=== PATIENT | female | born 2000 | race Caucasian/White ===

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

== ENCOUNTER → 2021-01-27 | Outpatient (CLI) | payer OTHER ==
[~2021-01-27] MED LIST changes: -CONTRAST GIVEN. MC PRN; -GADOTERATE 5 MMOL/10ML VIAL. IVP ONE; -IOHEXOL 300 MG/ML 50 ML VIAL. IJ ONE; -LIDOCAINE WITH 8.4% SOD BICARB 3 ML DISP.SYRIN. INJ ONE
[2021-01-27 11:27] LABS: BASO % 1 % (0-3); EOS # 0.2 x10^3/uL (0.0-0.7); EOS % 2 % (0-3); HEMATOCRIT 41.6 % (36.0-47.0); HEMOGLOBIN 14.2 g/dL (12.0-15.5); LYMPH % 13 % (24-48); MEAN CORPUSCULAR HEMOGLOBIN 30 pg (25-35); MEAN CORPUSCULAR HGB CONC 34 g/dL (31-37); MEAN CORPUSCULAR VOLUME 86 fL (79-100); MONO # 0.5 x10^3/uL (0.0-1.1); MONO % 7 % (0-9); NEUT # 6.2 x10^3/uL (1.8-7.7); NEUT % 78 % (31-73); PLATELET COUNT 280 x10^3/uL (140-400); RED BLOOD COUNT 4.83 x10^6/uL (3.50-5.40); RED CELL DISTRIBUTION WIDTH 13.1 % (11.5-14.5); WHITE BLOOD COUNT 7.9 x10^3/uL (4.0-11.0)
[2021-01-27 11:49] LABS: ALBUMIN 3.7 g/dL (3.4-5.0); ALBUMIN/GLOBULIN RATIO 1.2 (1.0-1.7); CALCIUM 9.1 mg/dL (8.5-10.1); TOTAL BILIRUBIN 0.6 mg/dL (0.2-1.0)
[2021-01-27 12:00] LABS: FREE T4 1.02 ng/dL (0.76-1.46); THYROID STIM HORMONE (TSH) 1.519 uIU/mL (0.358-3.74)
[2021-01-27 12:37] LABS: TOTAL PROTEIN 6.7 g/dL (6.4-8.2)
== END ==
LOC: LAB 11:07
PROVIDERS: ATTEND Nurse Practitioner Family
DX: R53.83 Other fatigue (principal)
CPT/HCPCS: 36415; 80053; 82306; 84439; 84443; 85025

== ENCOUNTER → 2021-02-23 | Outpatient (CLI) | payer OTHER ==
--- NOTE | 2021-02-23 13:24 | KCIC ---
EXAM: Lumbar spine, 5 views. HISTORY: Lifting injury. COMPARISON: None. FINDINGS: 5 views of the lumbar spine are obtained. There is lumbar hyperlordosis. There is 4 mm grad e 1 anterolisthesis of L5 on S1 with associated pars defects. There is mild retrolisthesis of L4 on L 5. There is mild multilevel endplate remodeling. There are few small endplate Schmorl's nodes. IMPRESSION: 1. Grade 1 anterolisthesis with pars defects at L5-S1. 2. Mild lumbar hyperlordosis and slight retrolisthesis of L4 on L5. 3. Minimal multilevel endplate remodeling. Electronically signed by: Farhana Cunha MD (02/23/2021 1:22 PM) [id number]
== END ==
LOC: KCIC 10:05
PROVIDERS: ATTEND Nurse Practitioner Family
DX: M43.17 Spondylolisthesis, lumbosacral region (principal); M51.46 Schmorl's nodes, lumbar region
CPT/HCPCS: 72110

== ENCOUNTER → 2021-03-30 | Outpatient (CLI) | payer OTHER ==
--- NOTE | 2021-03-30 11:21 | KCIC ---
MRI lumbar spine without contrast 03/30/2021 INDICATION: Lumbar, low back pain with associated radiculopathy COMPARISON STUDY: Lumbar spine radiographs February 23, 2021 TECHNIQUE: Multiplanar multisequence MRI imaging of the lumbar spine was performed without contrast. FINDINGS: There is no evidence of acute fracture or alignment abnormality. Vertebral body heights are maintained. Mild disc desiccation appears to be present in the inferior lumbar spine. No abnormal bone marrow signal is seen. The conus is in normal position without abnormal signal. Remaining findings by level are as follows: At the level of L1-L2, there is no evidence of disc bulge, neural foraminal narrowing, facet arthrosi s, ligamentum flavum thickening, or nerve root compression. At the level of L2-L3, there is no evidence of disc bulge, neural foraminal narrowing, facet arthrosi s, ligamentum flavum thickening, or nerve root compression. At the level of L3-L4, there is a broad-based disc bulge minimal central canal stenosis and narrowing of the bilateral, lateral recesses. Neural foramina are otherwise patent bilaterally. At the level of L4-L5, there is a broad-based disc bulge minimal central canal stenosis and narrowi ng of the bilateral, lateral recesses. Neural foramina are otherwise patent bilaterally. No nerve raman t compression is seen. At the level of L5-S1, <there is no evidence of disc bulge, neural foraminal narrowing, facet arthros is, ligamentum flavum thickening, or nerve root compression. Paravertebral soft tissues are unremarkable. Visualized intra-abdominal contents are within normal l imits. IMPRESSION: Overall mild degenerative changes of the lumbar spine most prominent at L3-4 and L4-5 wh ere there are broad-based disc bulges resulting in minimal canal stenosis and bilateral, lateral rece ss narrowing. Electronically signed by: Jeff Hui MD (03/30/2021 11:19 AM) [id number]
== END ==
LOC: KCIC MRI 09:48
PROVIDERS: ATTEND Nurse Practitioner Family
DX: M47.26 Other spondylosis with radiculopathy, lumbar region (principal); M51.26 Other intervertebral disc displacement, lumbar region
CPT/HCPCS: 72148

== ENCOUNTER → 2021-04-19 | Outpatient (CLI) | payer OTHER ==
[~2021-04-19] MED LIST changes: +ACET500T68 PO; +ARIP5TAB13 PO; +BUPR300T3 PO; +FEXO180T81 PO; +IOHEXOL 180 MG/ML 10 ML VIAL. ONE; +MELO15TA23 PO; +MONT10TA49 PO; +MULT-245 PO; +TIZA-75 PO; +inhaler; +methylPREDNISolone ACETATE 40 MG/ML VIAL. ONE
--- NOTE | 2021-04-19 12:54 | PDOC1 ---
INITIAL PAIN CONSULT DATE OF SERVICE: DOS: DATE: 04/19/21 TIME: 12:48 CHIEF COMPLAINT: Chief Complaint: Low back and right lower extremity pain HISTORY OF PRESENT ILLNESS: 20-year-old female presents history of pain low back right lower extremity for about 2 months now after moving and doing a lot of lifting and moving of furniture and boxes and items nothing to over heavy but repetitive motions and a lot of increase activity with moving patient reports that she has had pain now since that time in the low back on the right side rating the posterior gluteus posterior thigh lateral thigh anterior thigh medial thigh and into the ankle and foot with some numbness in the foot as well patient report is constant sharp stabbing throbbing change during the day worse with activity standing and walking getting up from seated position but reports numbness in the foot as well is aching in the back patient reports occasionally pain will ache on the left side as well in the low back patient reports wakes her from sleep about 2-3 times a night does not affect her bowel bladder control but does affect her ability to walk she normally walks about 7 miles a day for activity and exercise but is now only down to 2 miles patient reports has had physical therapy starting in middle February 7 sessions which is helpful but did not relieve the pain completely in the leg and the back patient reports she is taking meloxicam daily 15 mg which does help but only by moderate extent as well patient did have an MRI scan lumbar spine showing disc bulges broad-based at L3-4 with minimal central canal stenosis L4-5 shows broad-based disc bulge with minimal's canal stenosis as well and narrowing of the bilateral lateral recesses. Patient reports no loss of motor function with significant fatigability of the right lower extremity with walking and standing. Patient rates her disability rating 0-10 10 being worst is an 8 with family home responsibilities 6 with recreation social activity 5 with occupation self-care and life support activities. PAST MEDICAL HISTORY: PMH: No major medical problems or conditions that she is aware of PREVIOUS SURGERIES: Past Surgical Hx: Ear tubes CURRENT MEDICATIONS: Current Meds: Active Scripts Medications Dose Route/Sig Max Daily Dose Days Date Category [inhaler] PRN PRN 04/19/21 Reported Multi Vitamin Daily (Multivitamin) 1 Each Tablet 1 Tab PO DAILY 30 04/19/21 Reported Acetaminophen 500 Mg Tablet 1 Tab PO PRN Q6HRS PRN 15 04/19/21 Reported Tizanidine Hcl 4 Mg Tablet 1 Tab PO QHS 04/19/21 Reported Meloxicam 15 Mg Tablet 1 Tab PO DAILY 30 04/19/21 Reported Montelukast Sodium Tablet (Montelukast Sodium) 10 Mg Tablet 10 Mg PO HS 04/19/21 Reported Wellbutrin Xl (Bupropion Hcl) 300 Mg Tab.er.24h 1 Tab PO DAILY 04/19/21 Reported Abilify (Aripiprazole) 5 Mg Tablet 5 Mg PO DAILY 04/19/21 Reported Abiola Allergy (Fexofenadine Hcl) 180 Mg Tablet 1 Tab PO DAILY 14 04/19/21 Reported ALLERGIES; Allergies: Coded Allergies: No Known Drug Allergies (Unverified , 06/16/17) FAMILY HISTORY: Family Hx: Cancer, neurofibromatosis SOCIAL HISTORY: Social Hx: Patient is under alcohol does not smoke says any illegal illicit recreational drugs is single and is a student lives locally in [place], [place] REVIEW OF SYSTEMS: ROS: Positive for those items mentioned in history of present illness, all systems are reviewed, otherwise negative ,and are complete full and well-documented on patient's chart. PHYSICAL EXAM: VS: Blood pressure is 131/1 pulse 90 respirations 16 temperature is 98.7 F height 5 feet 8 inches weight is 272 pounds PE: PHYSICAL EXAMINATION: GENERAL: The patient is awake, alert, oriented, appropriate, very pleasant in demeanor, patient accompanied by her mother HEENT: Shows normocephalic, atraumatic. Extraocular movements are intact and symmetrical. Oral cavity: Mucous membranes moist and pink. Dentition is intact. NECK: Shows anterior throat supple without palpable lymphadenopathy noted. Swallow reflex symmetrical. CHEST: Shows normal on inspection. Breath sounds are clear bilaterally, no rales rhonchi or wheezes auscultated. HEART: Shows S1, S2 clear. No murmurs auscultated. ABDOMEN: Soft, nontender, nondistended, obese. No palpable organomegaly is noted. BACK: Shows spine grossly in the midline. Normal-appearing cervical lordotic curvature. There is slightly increased thoracic kyphosis, some minor flattening of the lumbar lordotic curvature. Lumbar paraspinous muscles show symmetrical on inspection, on palpation shows some moderate tenderness diffusely throughout the upper, middle and lower distribution of the paraspinous muscles bilaterally and also into the lower thoracic paraspinous musculature, firm and tender, but without specific trigger points, without radiation of pain. The patient shows good rotational motion of the lumbar spine, both laterally as well as extension and flexion without significant difficulty. No tenderness over the spinous processes, sacrum or sacroiliac regions. EXTREMITIES: Lower extremities show deep tendon reflexes 2+ in the patellar and tendo calcaneus tendons. Motor exam is 5 on a scale of 5 with right dorsiflexion, extension, quadriceps and hamstring flexion and 5 5/5 on the left. Peripheral pulses are 1+ posterior tibial. No peripheral edema is noted bilaterally. Lower extremities are warm and dry to touch, equal in color and appearance. Straight leg raise noted to be negative bilaterally. Gaenslen's and Oscar's maneuvers are negative bilaterally as well. The patient is able to stand, stand her toes that significant difficulty loss of balance walks with a normal-appearing gait does not appear to favor the right or left lower extremity significantly. SKIN: Shows warm and dry, good turgor. No edema. No sores, rashes or bruising throughout. IMPRESSION: Impression: 20-year-old female with approximate 2-month history low back right lower extremity pain in a radicular fashion #2 MRI scan lumbar spine as noted #3 obesity Plan: Options were discussed with the patient patient's mother who accompanied her to visit today including attending physical therapies and medical management and interventional techniques. Patient elects interventional techniques. We discussed a lumbar epidural steroid injections description as well as anatomical models to describe the procedure. Risks were discussed including but not limited to: Bleeding, infection, possibility of epidural hematoma and subsequent neurological compromise, dural puncture, headaches, spinal cord and/or nerve damage, side effects of steroid medication, and poor results regarding pain control. Patient understands and wished to proceed. Patient will return to the clinic in approximate 2 weeks for follow-up, was counseled return appointment, activity level, and side effect to be aware of. Procedure is lumbar epidural steroid injection under local anesthetic using sterile prep and drape at the L4-5 level using C-arm fluoroscopic guidance in both AP and lateral views medications injected is 120 mg Depo-Medrol +10mL preservative-free normal saline and 2 mL contrast- condition at discharge is stable patient tolerated procedure well had no complications. NIMCO ONOFRE MD Apr 19, 2021 12:54
--- NOTE | 2021-04-19 12:56 | PDOC4 ---
Procedure Note: ICD 10 Code: ICD 10 Code: M54.16 M 51.36 M 48.06 Procedure Note: Patient was consented for lumbar epidural steroid injection with fluoroscopic guidance. Risks were discussed including but not limited to: Bleeding, infection, possibility of epidural hematoma and subsequent neurological compromise, dural puncture, headaches, spinal cord and/or nerve damage, side effects of steroid medication, and poor results regarding pain control. Patient understands and wished to proceed. Procedure is lumbar epidural steroid injection under local anesthetic using st erile prep and drape at the L4-5 level using C-arm fluoroscopic guidance in both AP and lateral views medications injected is 120 mg Depo-Medrol +10mL preservative-free normal saline and 2 mL contrast- condition at discharge is stable patient tolerated procedure well had no complications. NIMCO ONOFRE MD Apr 19, 2021 12:56
== END | disposition home or self-care (01) ==
LOC: PNCL 10:21
PROVIDERS: ATTEND Anesthesiology
DX: M51.16 Intervertebral disc disorders with radiculopathy, lumbar region (principal); M48.061 Spinal stenosis, lumbar region without neurogenic claudication; M79.604 Pain in right leg; Z79.899 Other long term (current) drug therapy
CPT/HCPCS: 62323; J1030; Q9965

== ENCOUNTER → 2021-05-03 | Outpatient (CLI) | payer OTHER ==
[~2021-05-03] MED LIST changes: +methylPREDNISolone ACETATE 80 MG/ML VIAL. ONE
--- NOTE | 2021-05-03 10:21 | PDOC4 ---
Procedure Note: ICD 10 Code: ICD 10 Code: M54.16 M51.36 M4 8.06 Procedure Note: Patient was consented for lumbar epidural steroid injection with fluoroscopic guidance. Risks were discussed including but not limited to: Bleeding, infection, possibility of epidural hematoma and subsequent neurological compromise, dural puncture, headaches, spinal cord and/or nerve damage, side effects of steroid medication, and poor results regarding pain control. Patient understands and wished to proceed. Procedure is lumbar epidural steroid injection under local anesthetic using ry rile prep and drape at the L4-5 level using C-arm fluoroscopic guidance in both AP and lateral views medications injected is 120 mg Depo-Medrol +10mL preservative-free normal saline and 2 mL contrast- condition at discharge is stable patient tolerated procedure well had no complications. NIMCO ONOFER MD May 03, 2021 10:21
--- NOTE | 2021-05-03 10:21 | PDOC ---
Progress Note - Pain Clinic Date of Service: DOS: DATE: 05/03/21 TIME: 10:17 Diagnosis: Dx: Lumbar radiculopathy with lumbar degenerative disc disease and lumbar spinal stenosis History or Present Illness: HPI: 20-year-old female returns for follow-up status post lumbar epidural steroid injection x1. Patient reports about 25% improvement overall with pain still in the low back and right lower extremity patient is undergoing physical therapy as well which she reports is helpful also she doing some stretching think exercises at home as well but is noticed the pain is still persistent in the low back right leg posterior gluteus lateral thigh anterior thigh medial thigh and posterior thigh on the right side worse with walking on inclines with extended standing and bending patient reports still getting up from a kneeling position is difficult which she is required to do at work as well. Patient reports no bowel or bladder incontinence no new motor or sensory deficits rates her pain is a 6 on scale 10 is worst average and 3 at its least and is a 6 today. Patient reports no new deficits and no incontinence as noted. Physical Exam: VS: Blood pressure is 1.9/95 pulse 88 respiration 16 temperature is 98.4 F weight is 270 pounds PE: PHYSICAL EXAMINATION: GENERAL: The patient is awake, alert, oriented, appropriate, very pleasant in demeanor HEENT: Shows normocephalic, atraumatic. Extraocular movements are intact and symmetrical. Oral cavity: Mucous membranes moist and pink. Dentition is intact. NECK: Shows anterior throat supple without palpable lymphadenopathy noted. Swallow reflex symmetrical. CHEST: Shows normal on inspection. Breath sounds are clear bilaterally. HEART: Shows S1, S2 clear. No murmurs auscultated. ABDOMEN: Soft, nontender, nondistended, obese. No palpable organomegaly is noted. BACK: Shows spine grossly in the midline. Normal-appearing cervical lordotic curvature. There is mildly increased thoracic kyphosis, some flattening of the lumbar lordotic curvature. Lumbar paraspinous muscles show symmetrical on inspection, on palpation shows some moderate tenderness diffusely throughout the upper, middle and lower distribution of the paraspinous muscles, but without specific trigger points, without radiation of pain. The patient has good rotational motion of the lumbar spine, both laterally as well as extension and flexion without significant difficulty. EXTREMITIES: Lower extremities show deep tendon reflexes 2+ in the patellar and tendo calcaneus tendons. Motor exam is 5 on a scale of 5 with right dorsiflexion, extension, quadriceps and hamstring flexion and 5/5 on the left. Peripheral pulses are 1+ posterior tibial. No peripheral edema is noted bilaterally. Lower extremities are warm and dry to touch, equal in color and appearance. SKIN: Shows warm and dry, good turgor. No edema. No sores, rashes or bruising throughout. Procedure: Procedure: Options discussed with patient. Patient's old chart was reviewed as her current medication regimen updated current review of systems updated today as well. We will proceed with a lumbar epidural steroid injection today with fluoroscopic guidance. Risks were discussed including but not limited to: Bleeding, infection, possibility of epidural hematoma and subsequent neurological compromise, dural puncture, headaches, spinal cord and/or nerve damage, side effects of steroid medication, and poor results regarding pain control. Patient understands and wished to proceed. Patient will return to the clinic in approximate 2 weeks for follow-up, was counseled as to return appointment, activity level, and side effects to be aware of. Medication Injected: Med Injected: Procedure is lumbar epidural steroid injection under local anesthetic using sterile prep and drape at the L4-5 level using C-arm fluoroscopic guidance in both AP and lateral views medications injected is 120 mg Depo-Medrol +10mL preservative-free normal saline and 2 mL contrast- condition at discharge is stable patient tolerated procedure well had no complications. Condition at Discharge: Condition at Discharge: Condition at discharge stable, patient tolerated procedure well and had no complications. NIMCO ONOFRE MD May 03, 2021 10:21
== END | disposition home or self-care (01) ==
LOC: PNCL 09:23
PROVIDERS: ATTEND Anesthesiology
DX: M51.16 Intervertebral disc disorders with radiculopathy, lumbar region (principal); M48.061 Spinal stenosis, lumbar region without neurogenic claudication; Z79.899 Other long term (current) drug therapy
CPT/HCPCS: 62323; J1030; J1040; Q9965